=== PATIENT | female | born 1980 | race Caucasian/White ===

== ENCOUNTER 2016-06-01 10:58 | Emergency (ER) | payer BC ==
[~2016-06-01] VITALS: Ht 157.5 cm; Wt 67.9 kg
[~2016-06-01 10:58] MED LIST: CEPH500C PO; NO MEDS PER PT
[2016-06-01 11:03] VITALS: Ht 157.5 cm; Wt 67.9 kg
[2016-06-01] MEDS ORDERED: ACETAMINOPHEN 500 MG TAB PO STA (11:44)
[2016-06-01] MEDS ORDERED: IBUPROFEN 800 MG TAB PO ONE (12:00)
--- NOTE | 2016-06-01 12:30 | RADRPT ---
PROCEDURE: XR Chest. CLINICAL INDICATION: chest pain, cough TECHNIQUE: Single frontal view of the chest was obtained COMPARISON: None FINDINGS: The heart and mediastinum are within normal limits. There is a right lower lung consolidation. There is no pleural effusion or pneumothorax. RPTAT: AA IMPRESSION: Right lower lobe consolidation, consistent with pneumonia. .Benny Castellano MD, MD Date Time Electronically viewed and signed by .Benny Castellano MD, MD on 06/01/2016 12:30 .S/
[2016-06-01] MEDS ORDERED: ALBU18HF INHALATION (12:53)
[2016-06-01] MEDS ORDERED: AZIT250T94 PO (12:53)
[2016-06-01] MEDS ORDERED: HYDR-3652 PO (12:53)
[2016-06-01] MEDS ORDERED: IBUP800T25 PO (12:53)
[2016-06-01] MEDS ORDERED: AZITHROMYCIN 250 MG TAB PO ONE (13:00)
--- NOTE | 2016-06-01 13:36 | ERD ---
ER Documentation Chief Complaint Date/Time DATE: 06/01/16 TIME: 13:33 Chief Complaint flu like symptoms x 4 days HPI 35-year-old female who presents with flulike symptoms for approximately 4 days. Over the past 48 hours she describes cough that is productive of yellow sputum , shortness of breath and right-sided rib pain with coughing. She describes generalized malaise. She describes a history of depression but denies currently. ROS All systems reviewed and are negative except as per history of present illness. Medications Home Meds Active Scripts Hydrocodone Bit/Homatrop Me-Br (Tussigon 5-1.5 mg Tablet) 1 Each Tablet, 1 EACH PO TID Y for COUGH, #10 TAB Prov:ERWIN HERNANDEZ MD 06/01/16 Ibuprofen* (Motrin*) 800 Mg Tab, 800 MG PO Q6H Y for PAIN AND OR ELEVATED TEMP, #30 TAB Prov:ERWIN HERNANDEZ MD 06/01/16 Albuterol Sulfate* (Ventolin HFA*) 18 Gm Hfa.aer.ad, 2 PUFF INHALATION Q4H, #1 INHALER Prov:ERWIN HERNANDEZ MD 06/01/16 Azithromycin* (Zithromax*) 250 Mg Tablet, 250 MG PO DAILY for 4 Days, TAB Prov:ERWIN HERNANDEZ MD 06/01/16 Reported Medications Cephalexin* (Cephalexin*) 500 Mg Capsule, 500 MG PO Q6 for 7 Days, #28 CAP 01/08/16 [No Meds Per Pt] No Conflict Check 01/08/16 Allergies Allergies: Coded Allergies: No Known Allergy (Verified Allergy, Unknown, 02/07/07) PMhx/Soc Medical and Surgical Hx: pt denies Medical Hx, pt denies Surgical Hx Hx Psychiatric Problems: No Hx Miscellaneous Medical Probl: No Hx Alcohol Use: No Hx Substance Use: No Hx Tobacco Use: No FmHx Family History: No diabetes Physical Exam Vitals Vital Signs Date Time Temp Pulse Resp B/P Pulse Ox O2 Delivery O2 Flow Rate FiO2 06/01/16 13:01 100.5 115 95/50 98 06/01/16 11:03 102.1 128 20 109/60 99 Physical Exam General: Well developed, well nourished, no acute distress Head: Normocephalic, atraumatic. Eyes: Pupils equally reactive, EOM intact ENT: Moist mucous membranes Neck: Supple, no lymphadenopathy Respiratory: Rhonchi at the right base, no respiratory distress Cardiovascular: Tachycardia, no murmurs, rubs, or gallops Abdominal: Soft, non-tender, non-distended, no peritoneal signs : Deferred MSK: No edema, no unilateral swelling, 5/5 strength Neurologic: Alert and oriented, moving all extremities, normal speech, no focal weakness, no cerebellar signs Skin: No rash Psych: Normal mood Results 24 hrs Current Medications Medications (Trade) Dose Ordered Sig/Moses Route PRN Reason Start Time Stop Time Status Last Admin Dose Admin Ibuprofen (Motrin) 800 mg ONCE ONCE PO 06/01/16 12:00 06/01/16 12:02 DC 06/01/16 11:51 Acetaminophen (Tylenol Tab) 1,000 mg ONCE STAT PO 06/01/16 11:44 06/01/16 11:50 DC 06/01/16 11:51 Azithromycin (Zithromax) 500 mg ONCE ONCE PO 06/01/16 13:00 06/01/16 13:01 DC 06/01/16 12:57 Procedures/MDM EKG, MONITORS, & DIAGNOSTIC IMAGING: Chest x-ray: I reviewed and interpreted a 1 view of the chest Mediastinum: No enlargement Cardiac silhouette: No cardiomegaly Airspace: Right lower lobe pneumonia Bones: No evidence of fracture MEDICAL DECISION MAKING: The patient has fever, productive cough. She has focal lung findings. This is most consistent with uncomplicated community-acquired pneumonia. The patient has a fever that has not been treated. The patient will benefit from antipyretics and chest x-ray. The patient is young and otherwise healthy. I believe that even if she has pneumonia outpatient management would be appropriate. She has no respiratory distress and good oxygen saturation. ER COURSE: Her fever and tachycardia improved with antipyretics. The patient has subjective improvement. Her chest x-ray shows evidence of pneumonia and first dose of azithromycin provided here in the emergency department. The patient is likely to do well as an outpatient. The patient's blood pressure is borderline normal however she is a small thin female, this is likely to be her baseline. I have a very low clinical concern for sepsis. I did discuss return precautions and the patient verbalizes understanding. Parking Station Attendant use during ER course. I kept the patient and/or family informed of laboratory and diagnostic imaging results throughout the emergency room course. DISPOSITION PLAN: We discussed follow up with the patient's primary care doctor within 24 to 48 hours as needed. We also discussed return to the emergency room for worsening symptoms or worsening condition. Discharge Medications: Azithromycin, Motrin, Ventolin, Hycodan We discussed the use of narcotics including avoidance of operating heavy machinery and driving as well as its addictive properties. Departure Diagnosis: Primary Impression: Community acquired pneumonia Condition: Stable Patient Instructions: Pneumonia (Adult) Referrals: [facility] Usted se dowell hecho un examen mdico de control que le indica que no est en diana condicin que requiera tratamiento urgente en el Departamento de Emergencia. Un estudio ms profundo y el tratamiento de mckinney condicin pueden esperar sin ningn riesgo hasta que usted sea atendida/o en el consultorio de mckinney mdico o diana cl mini. Es responsabilidad suya arreglar diana christelle para el seguimiento del jeannette. MANEJO DE CONDICIONES NO URGENTES EN EL FUTURO 1) Si usted tiene un mdico de atencin primaria: Usted debera llamar a mckinney mdico de atencin primaria antes de venir al departamento de emergencia. Despus de las horas de consultorio, mckinney doctor o mckinney asociado/a est disponible por telfono. El mdico o enfermero de mary en el servicio telefnico puede asesorarle por nataly medio para atender el problema, o jeannette contrario se puede programar diana christelle. 2) Si usted no tiene un mdico de atencin primaria: Llame al mdico o clnica de referencia que aparece abajo rosalva las horas de consultorio para hacer diana christelle para que le vean. CLINICAS: [facility] [phone] [address] [facility] [phone] [address] [facility] [place] [phone] [facility] [phone] [place] [id number] [phone] [facility]. [phone] [address] [facility] [facility] () Usted se dowell hecho un examen mdico de control que le indica que no est en diana condicin que requiera tratamiento urgente en el Departamento de Emergencia. Un estudio ms profundo y el tratamiento de mckinney condicin pueden esperar sin ningn riesgo hasta que usted sea atendida/o en el consultorio de mckinney mdico o diana cl mini. Es responsabilidad suya arreglar diana christelle para el seguimiento del jeannette. MANEJO DE CONDICIONES NO URGENTES EN EL FUTURO 1) Si usted tiene un mdico de atencin primaria: Usted debera llamar a mckinney mdico de atencin primaria antes de venir al departamento de emergencia. Despus de las horas de consultorio, mckinney doctor o mckinney asociado/a est disponible por telfono. El mdico o enfermero de mary en el servicio telefnico puede asesorarle por nataly medio para atender el problema, o jeannette contrario se puede programar diana christelle. 2) Si usted no tiene un mdico de atencin primaria: Llame al mdico o condado institucions de referencia que aparece abajo rosalva las horas de consultorio para hacer diana christelle para que le vean. SI USTED NO PUEDE PAGAR PARA KOBY UN MEDICO puede ir a: [facility] [address] [place] [address] [facility] [address] [place] [address] [facility] [address] [place] [address] PARA MARYLOU [facility] [address] [place] [address] Additional Instructions: Llame al doctor MAANA y sue diana CHRISTELLE PARA DENTRO DE 2-3 SILVER.Dgale a la secretaria que nosotros le instruimos hacer esta christelle.Avise o llame si mckinney condicin se empeora antes de la christelle. Regresa aqui si peor o no mejor. ERWIN HERNANDEZ MD Jun 01, 2016 13:36
[2016-06-01 13:54] VITALS: BP 93/50; PULSE 98; RESP 20; TEMP 98.2
== END 2016-06-01 13:55 | disposition home or self-care (01) ==
LOC: FTE 10:58
DX: J18.9 Pneumonia, unspecified organism (principal)
CPT/HCPCS: 71010; 99284; Z7610

== ENCOUNTER 2018-04-15 01:28 | Emergency (ER) | payer BC ==
[~2018-04-15] VITALS: Ht 160 cm; Wt 57.8 kg
[~2018-04-15 01:28] MED LIST changes: -CEPH500C PO; -NO MEDS PER PT; +POLY17PO6 PO
[2018-04-15 01:32] VITALS: Ht 160 cm; Wt 57.8 kg
--- NOTE | 2018-04-15 02:31 | ERD ---
ER Documentation Chief Complaint Chief Complaint AP X1 MO. BELIEVES SHE HAS WORMS. DENIES N/V/D HPI This is a 37-year-old female who presents emergency department complaining of abdominal pain. Stated that she believes she has forms on her abdomen. Patient stated that she took a stool softener then had a diarrhea with mucus in it. Then she went to the pharmacy and advised by the pharmacist to get a prescription from her doctor for tapeworms. Patient denies being tested for treatments. LMP: 2 months ago. G 10 P8 M2. Denies headache, head injury, loss of consciousness, dizziness, neck pain, neck stiffness, throat pain, difficulty swallowing, difficulty breathing lying flat, shoulder pain, chest pain, back pain, nausea, vomiting, urinary symptoms, or possibility being , loss of bowel and bladder control, trauma, injury, falls, difficulty walking due to pain, numbness or tingling sensation, calf pain, recent travel, recent major surgery in the last 3 weeks, calf pain, recent long travel, recent exposure to any illness, recent antibiotic use in the last 3 months, fever, chills, seizures. Past medical history: Surgical history: Social: Denies smoking, use of alcoholic beverages, use of illegal drugs. ROS All systems reviewed and are negative except as per history of present illness. Medications Home Meds Active Scripts Acetaminophen* (Tylophen*) 500 Mg Capsule, 1 CAP PO Q6H PRN for PAIN AND OR ELEVATED TEMP, #20 CAP Prov:PASILABAN,KLAR F 04/15/18 Cephalexin* (Keflex*) 500 Mg Capsule, 500 MG PO TID for 7 Days, CAP Prov:PASILABAN,KLAR F 04/15/18 Polyethylene Glycol* (Miralax*) 17 Gm Powd.pack, 17 GM PO DAILY, #10 Prov:ION MCKEON DO 03/24/18 Allergies Allergies: Coded Allergies: No Known Allergy (Unverified , 04/15/18) PMhx/Soc History of Surgery: No Anesthesia Reaction: No Hx Neurological Disorder: No Hx Respiratory Disorders: No Hx Cardiac Disorders: No Hx Psychiatric Problems: Yes (depression) Hx Miscellaneous Medical Probl: No Hx Alcohol Use: Yes (Formerly) Hx 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 Neck: Full range of motion. No meningismus. Resp: Clear to auscultation bilaterally Cardio: Regular rate and rhythm, no murmurs Abd: Soft, non tender, non distended. Normal bowel sounds. Negative Godinez sign. Negative Shaun sign (heel jar test). Negative psoas sign. Negative Rovsing sign. Able to jump 3 times without developing lower abdominal pain. No CVA tenderness. Ambulatory with steady gait. Skin: No petechiae or rashes Back: No midline or flank tenderness Ext: No cyanosis, or edema Neur: Awake and alert. No neurological deficits. Psych: Normal Mood and Affect Result Diagram: 04/15/18 0247 04/15/18 024 Results 24 hrs Laboratory Tests Test 04/15/18 02:40 04/15/18 02:47 Urine Color YELLOW Urine Clarity CLOUDY Urine pH 5.0 Urine Specific Allen 1.033 Urine Ketones TRACE mg/dL Urine Nitrite POSITIVE mg/dL Urine Bilirubin NEGATIVE mg/dL Urine Urobilinogen NEGATIVE mg/dL Urine Leukocyte Esterase TRACE Manan/ul Urine Microscopic RBC 25 /HPF Urine Microscopic WBC 34 /HPF Urine Squamous Epithelial Cells FEW /HPF Urine Calcium Oxalate Crystals MANY /HPF Urine Bacteria FEW /HPF Urine Mucus FEW /HPF Urine Hemoglobin NEGATIVE mg/dL Urine Glucose NEGATIVE mg/dL Urine Total Protein NEGATIVE mg/dl Urine Test NEGATIVE Urine Opiates Screen Negative Urine Barbiturates Negative Urine Amphetamines Screen POSITIVE Urine Benzodiazepines Screen Negative Urine Cocaine Screen Negative Urine Cannabinoids Negative White Blood Count 6.0 10^3/ul Red Blood Count 4.07 10^6/ul Hemoglobin 10.8 g/dl Hematocrit 34.7 % Mean Corpuscular Volume 85.3 fl Mean Corpuscular Hemoglobin 26.5 pg Mean Corpuscular Hemoglobin Concent 31.1 g/dl Red Cell Distribution Width 18.7 % Platelet Count 343 10^3/UL Mean Platelet Volume 9.1 fl Immature Granulocytes % 0.200 % Neutrophils % 61.0 % Lymphocytes % 26.7 % Monocytes % 9.3 % Eosinophils % 2.3 % Basophils % 0.5 % Nucleated Red Blood Cells % 0.0 /100WBC Immature Granulocytes # 0.010 10^3/ul Neutrophils # 3.7 10^3/ul Lymphocytes # 1.6 10^3/ul Monocytes # 0.6 10^3/ul Eosinophils # 0.1 10^3/ul Basophils # 0.0 10^3/ul Nucleated Red Blood Cells # 0.0 10^3/ul Sodium Level 143 mmol/L Potassium Level 3.5 mmol/L Chloride Level 107 mmol/L Carbon Dioxide Level 30 mmol/L Anion Gap 6 Blood Urea Nitrogen 13 mg/dl Creatinine 0.50 mg/dl Est Glomerular Filtrat Rate mL/min > 60 mL/min Glucose Level 106 mg/dl Calcium Level 9.2 mg/dl Total Bilirubin 0.0 mg/dl Direct Bilirubin 0.00 mg/dl Indirect Bilirubin 0.0 mg/dl Aspartate Amino Transf (AST/SGOT) 35 IU/L Alanine Aminotransferase (ALT/SGPT) 44 IU/L Alkaline Phosphatase 91 IU/L Total Protein 7.8 g/dl Albumin 4.2 g/dl Globulin 3.60 g/dl Albumin/Globulin Ratio 1.16 Amylase Level 122 U/L Lipase 90 U/L POC Beta HCG, Qualitative NEGATIVE Procedures/MDM Diagnostic tests: Urinalysis: UTI. HCG urine: Negative. Urine drug screen: Positive for amphetamines. Blood works: Reviewed. Treatment: Not applicable. Re-evaluation: Appears comfortable in the waiting area. Not in acute distress. Differential diagnosis I have low suspicion for sepsis, appendicitis, pancreatitis, diverticulitis, cholecystitis, bowel obstruction, nephrolithiasis, pyelonephritis, septic stone, obstructing kidney stones. Final diagnosis: Abdominal pain. Urinary tract infection. Prescription: Keflex. Tylenol. Follow-up with PCP in the next 24-48 hours. Come back here in the emergency dep artment for any new symptoms or any worsening symptoms. All questions and concerns were answered. Patient and family members verbalized understanding and agreed with plan of care. Hemodynamically stable on discharge. Departure Diagnosis: Primary Impression: UTI (urinary tract infection) Additional Impression: Abdominal pain Condition: Stable Additional Instructions: Follow-up with PCP in the next 24-48 hours. Come back here in the emergency department for any new symptoms or any worsening symptoms. RENU ESCOBEDO Apr 15, 2018 02:31
[2018-04-15] MEDS ORDERED: CEPH-443 PO (03:48)
[2018-04-15] MEDS ORDERED: ACET500C5 PO (03:48)
== END 2018-04-15 04:08 | disposition home or self-care (01) ==
LOC: FTE 01:28
DX: N39.0 Urinary tract infection, site not specified (principal); Z87.891 Personal history of nicotine dependence
CPT/HCPCS: 80053; 80307; 81001; 81025; 82150; 83690; 84703; 85025; 99283

== ENCOUNTER 2018-04-18 01:26 | Emergency (ER) | payer BC ==
[~2018-04-18] VITALS: Ht 162.6 cm; Wt 55.3 kg
[~2018-04-18 01:26] MED LIST changes: +ACET500C5 PO; +CEPH-443 PO
[2018-04-18 01:32] VITALS: BP 164/93; PULSE 73; RESP 16; Ht 162.6 cm; Wt 55.3 kg
== END 2018-04-18 01:38 | disposition left against medical advice (07) ==
LOC: FTE 01:26
DX: Z53.21 Procedure and treatment not carried out due to patient leaving prior to being seen by health care provider (principal)